=== PATIENT | female | born 1970 ===

== ENCOUNTER 2018-04-12 13:39 | Outpatient (CLI) | payer OTHER ==
[~2018-04-12] VITALS: Ht 160 cm; Wt 70.3 kg
[~2018-04-12 13:39] MED LIST: BENTYL10 MG/ML PO; BENZONATATE100 MG PO; MUCINEX22 ML NS; PHENERGAN50 MG/SUPP PO; RANITIDINE HCL150 M1 PO; [UNRECOGNIZED DRUG - REMARK]
== END 2018-04-12 14:00 | disposition home or self-care (01) ==
LOC: OFIC 805 13:39
DX: H92.03 Otalgia, bilateral (principal); R51 Headache; M54.2 Cervicalgia

== ENCOUNTER 2018-10-07 14:26 | Outpatient (CLI) | payer OTHER ==
[~2018-10-07] VITALS: Ht 152.4 cm; Wt 70.3 kg
== END 2018-10-07 14:40 | disposition home or self-care (01) ==
LOC: OFIC 805 14:26
DX: K11.20 Sialoadenitis, unspecified (principal); Q67.0 Congenital facial asymmetry; M35.00 Sjogren syndrome, unspecified

== ENCOUNTER 2018-11-15 16:35 | Inpatient (IN) | payer OTHER ==
[~2018-11-15] VITALS: Ht 91.4 cm; Wt 5.0 kg
[2018-11-15] MEDS ORDERED: NEURONTIN800 MG PO (17:46)
[2018-11-15] MEDS ORDERED: SYNTHROID175 MCG PO (17:47)
[2018-11-15] MEDS ORDERED: CRESTOR5 MG PO (17:48)
[2018-11-15] MEDS ORDERED: AYGESTIN5 MG PO (17:49)
[2018-11-15] MEDS ORDERED: IMITREX100 MG PO (17:52)
[2018-11-15] MEDS ORDERED: PREVACID30 MG PO (17:53)
[2018-11-15] MEDS ORDERED: DICLOFENAC SODI75 MG PO (17:54)
[2018-11-15] MEDS ORDERED: PARAFON FORTE PO (17:56)
[2018-11-15] MEDS ORDERED: AMBIEN10 MG PO (17:58)
[2018-11-15] MEDS ORDERED: BACLOFEN20 MG PO (18:00)
[2018-11-24] MEDS ORDERED: LORZONE375 MG PO (08:30)
[2018-11-26] MEDS ORDERED: OXYC1TAB9 PO (15:28)
== END 2018-11-26 16:18 | disposition home or self-care (01) | DRG 743 ==
LOC: O/R 11-23 06:41 → OB/GYN 11-23 06:41 → SURH 11-23 08:30 → OB/GYN 11-23 15:02
PROVIDERS: ADMIT Obstetrics & Gynecology
PROC: 0UT70ZZ Resection of Bilateral Fallopian Tubes, Open Approach (ICD-10-PCS; 2018-11-23)
PROC: 0UT90ZZ Resection of Uterus, Open Approach (ICD-10-PCS; principal; 2018-11-23 08:30)
DX: D25.1 Intramural leiomyoma of uterus (principal); E03.8 Other specified hypothyroidism